=== PATIENT | male | born 1940 | race Caucasian/White ===

== ENCOUNTER 2019-08-07 12:01 | Observation (INO) ==
[2019-08-07 12:10] VITALS: BMI 28.8
[2019-08-07 12:44] LABS: BASOPHILS % (AUTO) 0.5 % (0.2-1.0); EOSINOPHILS % (AUTO) 0.2 % (0.9-2.9); HEMOGLOBIN 11.4 g/dL (13.5-18.0); LYMPHOCYTES # (AUTO) 1.1 X10^3/uL (1.3-2.9); LYMPHOCYTES % (AUTO) 18.8 % (21.0-51.0); MEAN CORPUSCULAR HEMOGLOBIN 35.3 pg (27.0-34.0); MEAN CORPUSCULAR HGB CONC 34.5 g/dL (33.0-35.0); MEAN CORPUSCULAR VOLUME 102.1 fL (80.0-100.0); MEAN PLATELET VOLUME 9.3 fL (7.4-11.0); MONOCYTES # (AUTO) 0.7 x10^3/uL (0.3-0.8); NEUTROPHILS # (AUTO) 3.9 x10^3/uL (2.2-4.8); NEUTROPHILS % (AUTO) 67.5 % (42.0-75.0); PLATELET COUNT 180 X10^3/uL (150.0-450.0); RED BLOOD COUNT 3.23 X10^6/uL (4.7-6.0); RED CELL DISTRIBUTION WIDTH 15.1 % (11.6-16.5); WHITE BLOOD COUNT 5.7 X10^3/uL (3.6-10.0)
--- NOTE | 2019-08-07 12:44 | DR.GENAD ---
HPI Time Seen Time Seen by Provider: 08/07/19 12:25 PCP Primary Care Physician: ZUNILDA HPI Comment HPI Comment: PATIENT IS 79YR OLD WHITE MALE IN ER WITH FAMILY WHO TRANSPORTED PATIENT BECAUSE OF SYNCOPAL EPISODE AT HOME. HAPPEN SHORTLY BEFORE COMING TO ED. PATIENT WAS OUTSIDE WORKING WHEN HE HAD THE SYNCOPAL EPISODE. PATIENT WAS NOT AWARE OF EPISODE. A MAN WITH PATIENT THAT WITNESS EPISODE STATED PATIENT WAS COMPLTELY OUT. PATIENT REPORTS GENERALIZED FATIGUE FOR PAST 2 MONTHS. IT IS GETTING WORSE. DENIES FEVER. RIGHT SIDE OF HIS MOUTH AND RIGHT FINGERS ARE TINGLING. DENIES HEADACHE. PATIENT HAVE A FIB ON XARELTO AND HAVE SLEEP APNEA WITH RECENT SLEEP STUDIES WITH PENDING RESULT. Complaint/Symptoms Chief Complaint Doctors Comments: SYNCOPAL EPISODE. Chief Complaint:: "BEEN EXTREMELY TIRED FOR ABOUT THE LAST 2 MONS, SLEEP STUDY SATURDAY NIGHT, WAS OUTSIDE WORKING AND PASSED OUT. SOMEONE WAS WITH HIM, MAN STATED PT WAS COMPLETELY OUT. STATED HE HAD TINGLING TO RIGHT FINGERS AND RIGHT SIDE OF MOUTH" Self Treatment fo Chief Complaint: NONE Nurses notes reviewed Nurses Notes Review: Yes Source History Provided: Patient and Family Member Mode of Arrival Mode of Arrival: Ambulatory Timing Onset of Chief Complaint: 08/07/19 Came on: Suddenly Duration Duration: Constant Duration: Hours Modifying Factors Worsens:: EXERTIONAL DYSPNEA. Improves:: REST Associated Signs and Symptoms Associated Signs and Symptoms: GENERALIZED WEAKNESS. Other History Other History: A FIB PMH PMH Past Medical History: Yes Past Medical History: Hypertension and Sleep Apnea Past Surgical History: Yes Past Surgical History Comment: PACEMAKER Family History History of Family Medical Conditions: Yes Family Medical History: Diabetes Mellitus, Cancer and Hypertension Social History Does any household member use tobacco: No Alcohol Use: None Do you use any recreational Drugs:: No Lives With: Family Lives Where: Home infectious screening In the last 2 months have you had wt loss of >10#?: NO Have you had fever, night sweats or hemotysis?: No Have you traveled outside the country in the last 6 months?: No ROS Review of Systems Constitutional: See HPI, Weakness and Fatigue; negative Fever Eyes: No Symptoms Reported and See HPI; negative Eye Pain, Blurred Vision, Photophobia and Diplopia ENTM: No Symptoms Reported and See HPI; negative Ear Pain, Nose Discharge, Nose Congestion and Throat Pain Respiratoy: No Symptoms Reported and See HPI; negative Moist Cough, Short of Breath and Wheezing Cardiovascular: See HPI and Syncope; negative Chest Pain, Edema and Palpitations Gastrointestinal/Abdominal: No Symptoms Reported and See HPI; negative Abdominal Pain, Constipation, Diarrhea, Nausea and Vomiting Genitourinary: No Symptoms Reported and See HPI; negative Dysuria, Frequency and Hematuria Neurological: See HPI, Weakness and Dizziness; negative Headache Musculoskeletal: No Symptoms Reported and See HPI; negative Back Pain and Muscle Pain Integumentary: See HPI and Bruises; negative Change in Color, Rash and Juandice Hematologic/Lymphatic: See HPI, Easy Bleeding and Easy Bruising; negative Swollen Glands Endocrine: No Symptoms Reported and See HPI; negative Increased Thirst, Increased Urine and Decreased Appetite Psychiatric: No Symptoms Reported and See HPI All Other Systems: Reviewed and Negative PE Vital Signs Vitals: Temperature 97 F Pulse Rate 69 Respiratory Rate 21 Blood Pressure 139/77 O2 Sat by Pulse Oximetry 82 General Limitations: No Limitations General Appearance: Alert and In No Apparent Distress Head Head Exam: Normal Inspection and Atraumatic Eyes Eye exam: Normal Appearance, PERRL and EOMI; negative Scleral Icterus and Conjunctival Injection ENT ENT Exam: Normal Exam, Normal Oropharynx, Normal External Ear Exam and TM's Normal Bilaterally External Ear Exam: Normal External Inspection; negative Mastoid Tenderness, Pain with Movement and External Tenderness TM/Canal Exam: Bilateral: Normal Nose Exam: Normal Nose Exam; negative Sinus Tenderness, Nasal Deviation and Septal Hematoma Mouth Exam: Normal Inspection; negative Lip Swelling and Tongue Swelling Throat Exam: Normal Inspection; negative Tonsillar Erythema, Tonsillomegaly and Tonsillar Exudate Neck Neck Exam: Normal Inspection and Trachea Midline; negative Tenderness and Lymphadenopathy Chest Chest Inspection: Normal Inspection and Symmetric Chest Wall Rise; negative Tenderness Respiratory Respiratory Exam: Normal Lung Sounds Bilat; negative Accessory Muscle Use, Chest Wall Tenderness and Respiratory Distress Respiratory Exam: Bilateral: Rhonchi and Lower: Rhonchi Cardiovascular Cardiovascular Exam: Regular Rate, Normal Rhythm and Normal Heart Sounds; negative Systolic Murmur and Diastolic Murmur Extremities Extremities Exam: Normal Inspection and Normal Capillary Refill; negative Tenderness, Edema and Calf Tenderness Back Back Exam: Normal Inspection Neurologic Neurological Exam: Alert, Oriented X3 and CN II-XII Intact; negative Motor Sensory Deficit Psychiatric Psychiatric Exam: Normal Affect and Normal Mood Skin Skin Exam: Warm, Dry, Intact and Normal Color MDM Differential Diagnosis Differential Diagnosis: SYNCOPAL EPISODE, A FIB, GENERALIZE WEAKNESS. COURSE Treatment Treatment: SEE ORDERS. Consultation Consultation Comments: DISCUSSED PATIENT WITH DR. CORTÉS. HE WILL ADMIT PATIENT. Education/Counseling Education/Counseling: Patient and Family Educated On: Diagnosis ROR Labs Reviewed Laboratory Results Reviewed?: Yes Result Diagrams: 08/08/19 06:20 08/08/19 06:20 Laboratory: WBC 5.7 X10^3/uL (3.6-10.0) 08/07/19 12:35 RBC 3.23 X10^6/uL (4.7-6.0) L 08/07/19 12:35 Hgb 11.4 g/dL (13.5-18.0) L 08/07/19 12:35 Hct 33.0 % (42.0-54.0) L 08/07/19 12:35 MCV 102.1 fL (80.0-100.0) H 08/07/19 12:35 MCH 35.3 pg (27.0-34.0) H 08/07/19 12:35 MCHC 34.5 g/dL (33.0-35.0) 08/07/19 12:35 RDW 15.1 % (11.6-16.5) 08/07/19 12:35 Plt Count 180 X10^3/uL (150.0-450.0) 08/07/19 12:35 MPV 9.3 fL (7.4-11.0) 08/07/19 12:35 Neut % (Auto) 67.5 % (42.0-75.0) 08/07/19 12:35 Lymph % (Auto) 18.8 % (21.0-51.0) L 08/07/19 12:35 [place] % (Auto) 13.0 % (0.0-13.0) 08/07/19 12:35 Eos % (Auto) 0.2 % (0.9-2.9) L 08/07/19 12:35 Baso % (Auto) 0.5 % (0.2-1.0) 08/07/19 12:35 Neut # (Auto) 3.9 x10^3/uL (2.2-4.8) 08/07/19 12:35 Lymph # (Auto) 1.1 X10^3/uL (1.3-2.9) L 08/07/19 12:35 Jones # (Auto) 0.7 x10^3/uL (0.3-0.8) 08/07/19 12:35 Eos # (Auto) 0.0 x10^3/uL (0.0-0.2) 08/07/19 12:35 Baso # (Auto) 0.0 X10^3/uL (0.0-0.1) 08/07/19 12:35 Absolute Nucleated RBC 0.2 /100WBC 08/07/19 12:35 Sodium 142 mmol/L (136-145) 08/07/19 12:35 Corrected Sodium 144 mmol/L (136-145) 08/07/19 12:35 Potassium 3.6 mmol/L (3.5-5.1) 08/07/19 12:35 Chloride 106 mmol/L (98-107) 08/07/19 12:35 Carbon Dioxide 29.4 mmol/L (21-32) 08/07/19 12:35 BUN 28 mg/dL (7-18) H 08/07/19 12:35 Creatinine 1.83 mg/dL (0.70-1.30) H 08/07/19 12:35 Est GFR (MDRD) Af Amer 46 (>60) L 08/07/19 12:35 Est GFR (MDRD) Non-Af 38 (>60) L 08/07/19 12:35 Glucose 175 mg/dL (65-99) H 08/07/19 12:35 Calcium 9.2 mg/dL (8.5-10.1) 08/07/19 12:35 Corrected Calcium TNP 08/07/19 12:35 Total Bilirubin 0.90 mg/dL (0.2-1.0) 08/07/19 12:35 AST 23 Units/L (15-37) 08/07/19 12:35 ALT 39 Units/L (12-78) 08/07/19 12:35 Alkaline Phosphatase 63 Units/L (46-116) 08/07/19 12:35 Creatine Kinase 191 Units/L (39-308) 08/07/19 12:35 CK-MB (CK-2) 1.2 ng/mL (0-4.0) 08/07/19 12:35 CK/CKMB % Calc 0.6 % (<4) 08/07/19 12:35 Troponin I < 0.02 ng/mL (0-1.5) 08/07/19 12:35 Total Protein 6.7 g/dL (6.4-8.2) 08/07/19 12:35 Albumin 3.7 g/dL (3.4-5.0) 08/07/19 12:35 Globulin 3.0 g/dL (2.5-4.5) 08/07/19 12:35 Albumin/Globulin Ratio 1.2 Ratio (1.1-2.1) 08/07/19 12:35 Specimen Type Clean catch urine 08/07/19 15:07 Urine Color Yellow (YELLOW) 08/07/19 15:07 Urine Appearance Clear (CLEAR) 08/07/19 15:07 Urine pH 7.0 (5.0 - 8.0) 08/07/19 15:07 Ur Specific [place] 1.015 (1.000-1.030) 08/07/19 15:07 Urine Protein 1+ (NEGATIVE) 08/07/19 15:07 Urine Glucose (UA) Negative (NEGATIVE) 08/07/19 15:07 Urine Ketones Negative (NEGATIVE) 08/07/19 15:07 Urine Occult Blood 3+ (NEGATIVE) 08/07/19 15:07 Urine Nitrite Negative (NEGATIVE) 08/07/19 15:07 Urine Bilirubin Negative (NEGATIVE) 08/07/19 15:07 Urine Urobilinogen 2+ (NORMAL) 08/07/19 15:07 Ur Leukocyte Esterase Negative (NEGATIVE) 08/07/19 15:07 Urine RBC 3-5 /HPF (0-3) A 08/07/19 15:07 Urine WBC None seen /HPF (0-5) 08/07/19 15:07 Ur Squamous Epith Cells Negative /HPF (NEGATIVE) 08/07/19 15:07 Urine Bacteria Negative /HPF (NEGATIVE) 08/07/19 15:07 Hyaline Casts Few /LPF (NEGATIVE) 08/07/19 15:07 Ur Culture Indicated? No/not indicated 08/07/19 15:07 XRAY XRAY Interpreted by: Radiologist XRAY Findings: REPORT DISCUSSED WITH PATIENT AND FAMILY. EKG Rate: 69 [place]: Normal Rhythm: Paced Block: None Hypertrophy: None ST: Ischemia Opioid Opioid Risk Tool Age (Vinicius box if 16-45): No Total: 0 Total Score Risk Category: Low Risk Copyright: ZEB predicting aberrant behaviors Diagnosis Discharge Problem: History of atrial fibrillation Syncope Qualifiers: Syncope type: unspecified Qualified Code(s): R55 - Syncope and collapse
[2019-08-07 13:01] LABS: BLOOD UREA NITROGEN 28 mg/dL (7-18); CALCIUM 9.2 mg/dL (8.5-10.1); CARBON DIOXIDE 29.4 mmol/L (21-32); CHLORIDE 106 mmol/L (98-107); COR NA(FOR HYPERGLY) 144 mmol/L (136-145); CREATININE 1.83 mg/dL (0.70-1.30); SODIUM 142 mmol/L (136-145); TROPONIN I < 0.02 ng/mL (0-1.5); eGFR NON BLACK RACES 38 (>60)
--- NOTE | 2019-08-07 13:03 | CT ---
HISTORY: Syncope, facial numbness Study: CT brain without contrast Comparison: None Technique: Multiple axial images of the brain were obtained without administration of IV contrast. Dose reduction techniques including Automated Exposure Control (AEC) and adjustment of mA and kV were utilized. Findings: There is generalized cerebral volume loss with confluent subcortical and periventricular white matter hypoattenuation suggesting advanced microvascular ischemic changes. There is right parietal encephalomalacia suggesting a previous infarct with additional scattered hypodensities in the bilateral basal ganglia likely representing chronic lacunar infarcts. Calcified plaque is seen in the carotid and vertebral arteries. No evidence of acute hemorrhage, midline shift, mass effect or abnormal extra-axial fluid collection. Prominence of the ventricles and cortical sulci is commensurate with volume loss. The soft tissues and osseous structures are unremarkable. The visualized paranasal sinuses are clear. IMPRESSION: 1. 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 Consider MRI if there is high clinical suspicion for infarct. Reported By:
--- NOTE | 2019-08-07 13:03 | RAD ---
Examination: AP chest History: Syncope Comparison reference none Findings: Normal heart size, tortuous aorta, clear lungs. There is elevation of the left hemidiaphragm. A twin lead pacemaker is present in appropriate position. Impression: Mild nonspecific left diaphragm elevation. No acute cardiopulmonary lesion demonstrated. Reported By:
[2019-08-07 13:06] LABS: ALANINE AMINOTRANSFERASE 39 Units/L (12-78); ALBUMIN 3.7 g/dL (3.4-5.0); ALKALINE PHOSPHATASE 63 Units/L (46-116); ASPARTATE AMINO TRANSFERASE 23 Units/L (15-37); CKMB % 0.6 % (<4); CREATINE KINASE 191 Units/L (39-308); CREATINE KINASE MB 1.2 ng/mL (0-4.0); TOTAL PROTEIN 6.7 g/dL (6.4-8.2)
[2019-08-07 15:32] LABS: BILIRUBIN,URINE NEGATIVE (NEGATIVE); BLOOD/HEMOGLOBIN,URINE 3+ (NEGATIVE); GLUCOSE, URINE NEGATIVE (NEGATIVE); KETONES,URINE NEGATIVE (NEGATIVE); LEUKOCYTE ESTERASE ,URINE NEGATIVE (NEGATIVE); NITRITES,URINE NEGATIVE (NEGATIVE); PROTEIN,URINE 1+ (NEGATIVE); UROBILINOGEN,URINE 2+ (NORMAL)
[2019-08-07 15:40] LABS: APPEARANCE,URINE CLEAR (CLEAR); COLOR,URINE YELLOW (YELLOW)
[2019-08-07 15:41] LABS: BACTERIA,URINE NEGATIVE /HPF (NEGATIVE); HYALINE CASTS, URINE FEW /LPF (NEGATIVE); SQUAMOUS EPITHELIAL CELL,UR NEGATIVE /HPF (NEGATIVE)
[2019-08-07] MEDS: NS 1000 ML 1,000 ML IV SCH (19:25)
[2019-08-07 23:17] LABS: CKMB % 0.5 % (<4); CREATINE KINASE 211 Units/L (39-308); CREATINE KINASE MB < 1.0 ng/mL (0-4.0); TROPONIN I < 0.02 ng/mL (0-1.5)
[2019-08-08 07:02] LABS: BASOPHILS % (AUTO) 0.2 % (0.2-1.0); EOSINOPHILS % (AUTO) 0.4 % (0.9-2.9); HEMATOCRIT 32.2 % (42.0-54.0); HEMOGLOBIN 11.4 g/dL (13.5-18.0); LYMPHOCYTES # (AUTO) 1.3 X10^3/uL (1.3-2.9); LYMPHOCYTES % (AUTO) 25.3 % (21.0-51.0); MEAN CORPUSCULAR HEMOGLOBIN 35.9 pg (27.0-34.0); MEAN CORPUSCULAR HGB CONC 35.4 g/dL (33.0-35.0); MEAN CORPUSCULAR VOLUME 101.5 fL (80.0-100.0); MEAN PLATELET VOLUME 9.8 fL (7.4-11.0); MONOCYTES # (AUTO) 0.8 x10^3/uL (0.3-0.8); MONOCYTES % (AUTO) 14.6 % (0.0-13.0); NEUTROPHILS # (AUTO) 3.1 x10^3/uL (2.2-4.8); NEUTROPHILS % (AUTO) 59.5 % (42.0-75.0); PLATELET COUNT 168 X10^3/uL (150.0-450.0); RED BLOOD COUNT 3.17 X10^6/uL (4.7-6.0); RED CELL DISTRIBUTION WIDTH 14.8 % (11.6-16.5); WHITE BLOOD COUNT 5.2 X10^3/uL (3.6-10.0)
[2019-08-08 07:15] LABS: ALANINE AMINOTRANSFERASE 35 Units/L (12-78); ALBUMIN 3.4 g/dL (3.4-5.0); ALKALINE PHOSPHATASE 60 Units/L (46-116); ASPARTATE AMINO TRANSFERASE 21 Units/L (15-37); BLOOD UREA NITROGEN 22 mg/dL (7-18); CALCIUM 8.6 mg/dL (8.5-10.1); CARBON DIOXIDE 26.8 mmol/L (21-32); CHLORIDE 106 mmol/L (98-107); CHOL/HDL RATIO 3.5 (0.0-5.0); CHOLESTEROL 156 mg/dL (0-200); COR NA(FOR HYPERGLY) 143 mmol/L (136-145); CREATININE 1.39 mg/dL (0.70-1.30); HDL CHOLESTEROL 44 mg/dL (40-60); MAGNESIUM 2.1 mg/dL (1.7-2.9); SODIUM 142 mmol/L (136-145); TOTAL PROTEIN 6.5 g/dL (6.4-8.2); TRIGLYCERIDES 124 mg/dL (0-150); eGFR NON BLACK RACES 52 (>60)
[2019-08-08] MEDS ORDERED: POTASSIUM CHL 40 MEQ/NS 0.45% 500 ML IV PRN (08:43)
[2019-08-08] MEDS ORDERED: K-RIDER 10 MEQ/NS 100 ML 10 MEQ/100 ML BAG IV PRN (08:43)
[2019-08-08] MEDS ORDERED: K-DUR TAB 20 MEQ PO PRN (08:43)
[2019-08-08] MEDS ORDERED: POTASSIUM CHL 60 MEQ/NS 0.45% 500 ML IV PRN (08:43)
[2019-08-08] MEDS ORDERED: MICRO K EXTEN CAP 10 MEQ PO PRN (08:43)
[2019-08-08] MEDS ORDERED: POTASSIUM CHLORIDE LIQ 20 MEQ UDC PO PRN (08:43)
[2019-08-08] MEDS ORDERED: KLOR-CON PO PRN (08:43)
[2019-08-08] MEDS ORDERED: ZESTRIL TAB 20 MG ONE (10:17)
[2019-08-08] MEDS: ZESTRIL TAB 20 MG PO SCH (10:19)
[2019-08-08] MEDS: HYDROCHLOROTHIAZIDE 12.5 MG CAP PO SCH (10:19)
[2019-08-08] MEDS: NS 1000 ML 1,000 ML IV SCH ×2 (10:33→20:12)
[2019-08-08] MEDS: K-DUR TAB 20 MEQ PO SCH (11:52)
[2019-08-08] MEDS: LIPITOR TAB 40 MG PO SCH (11:54)
--- NOTE | 2019-08-08 12:12 | RAD ---
Examination: KUB History colon distention Findings: There is gaseous dilatation of scattered segments of small bowel and colon. The appearance does not suggest mechanical obstruction. There is a circular structure 4.0 cm in diameter projected just below the left diaphragm. There is no evidence for ascites or organ enlargement. The lung bases are clear. Impression: 1. Mild nonobstructive intestinal distention consistent with ileus. 2. Rounded opacity in the left upper quadrant may represent surface artifact. Gastrostomy balloon could produce similar findings. Otherwise, follow-up suggested to confirm or exclude what may be a significant abnormality. Reported By:
--- NOTE | 2019-08-08 12:28 | DR.H&P ---
H&P - History & Physical for Day of: H&P Date: 08/07/19 - Chief Complaint Chief Complaint: SYNCOPE - History of Present Illness History of Present Illness: 79 WM ER ADMISSION AFTER PRESENTING WITH CO SYNCOPAL EPISODE. PT STATES HE WAS OUT IN THE HEAT PRIOR TO EPISODE BUT DENIES STRENOUS ACTIVITY AT THAT TIME, NOR CHEST PAIN OR SOB. PT DENIES ANY TREVINO OR DIZZINESS. PT CT HEAD IN ER WO ACUTE FINDINGS, NO NEUROLOGICAL DEFICITS. PT HAS PMH OF AFIB S/P ABLATION APPROX 3 YEARS AGO. HAS PACE MAKER AND ON XARELTO. PT HAD BEEN UNDER THE CARE OF [facility], HAD REPORTS CATH AND ECHO LESS THAN ONE YEAR AGO. PT ADMITTED FOR EVALUATION OF ACUTE ILLNESS. - Past Medical History Past Medical History: Hypertension, Kidney Stones, Sleep Apnea Additional Medical History: AFIB - Past Surgical History Additional Surgical History: PACEMAKER - Family History Family Medical History: Cancer - Social History Does patient currently use any type of tobacco product: No Type of Tobacco Use: None Does any household member use tobacco: No Alcohol Use: None Drug Use: None - Medications Home Medications: No Known Drug Allergies Allergy (Verified 07/24/18 10:42) CONTINUE taking the following medications atorvastatin 40 mg PO DAILY 08/07/19 [History] celecoxib 200 mg PO DAILY 08/07/19 [History] fenofibrate 54 mg PO DAILY 08/07/19 [History] lisinopril-hydrochlorothiazide 1 tab PO DAILY 08/07/19 [History] magnesium oxide 400 mg PO BID 08/07/19 [History] potassium chloride 20 meq PO DIRECTED 08/07/19 [History] rivaroxaban [Xarelto] 20 mg PO DAILY 08/07/19 [History] - Review of Systems Constitutional: Weakness Eyes: No Symptoms Reported ENT: No Symptoms Reported Respiratory: SOB with Excertion Cardiovascular: Light Headedness Gastrointestinal: No Symptoms Reported Genitourinary: No Symptoms Reported Musculoskeletal: No Symptoms Reported Skin: No Symptoms Reported Neurological: Weakness - Physical Exam Vital Signs: Temperature 99.2 F Pulse Rate [Left Brachial] 72 Pulse Rate 69 Respiratory Rate 20 Blood Pressure [Left Arm] 177/99 Blood Pressure 139/77 O2 Sat by Pulse Oximetry 96 Oriented: Normal Eyes: Normal Ear: Normal Nose: Normal Throat: Normal Respiratory: RLL Diminished, LLL Diminished Cardiovascular: Normal, Other (PACE MAKER PRESENT) : Normal Auscultation: Bowel Sounds: Normal Palpation: Normal Tenderness: Normal Skin: Normal Musculoskeletal: Normal Psychiatric: Normal Mood Description: Calm Speech Pattern: Clear, Appropriate - Assessment/Plan (1) Syncope Status: Acute Plan: ADMIT, CT HEAD IN ER. CXR ON ADMISSION, SERIAL CE, EKG. BP CONTROL, RESUME HOME MEDICATION, RESUME XARELTO. GENTLE IV HYDRATION, STRICT I& OS. PRN SUPPLEMENTAL O2. 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
[2019-08-08 13:11] LABS: TSH (3RD GENERATION) 1.287 uIU/mL (0.358-3.74)
[2019-08-08 13:18] LABS: TOTAL PSA 1.54 ng/mL (0.13-4.0)
--- NOTE | 2019-08-08 14:14 | CT ---
History: Abdominal distension Exam: CT abdomen and pelvis without contrast Comparison: None Technique: Axial spiral images were obtained from lung bases through the pubic symphysis without contrast. Automated dose control was utilized. Findings: The lung bases are clear. There are mild linear densities scattered along the lung bases posteriorly. The liver borderline enlarged with hypertrophy of the caudate and left lobes. There is an 8 mm hypodensity in the left lobe laterally which is ill-defined. The gallbladder, pancreas, and adrenals are normal . The spleen is unremarkable. The kidneys are normal size with a 6 cm cyst along the upper pole right kidney measuring water density . There is a 6 mm parenchymal calcification along the mid polar region on the right with no hydronephrosis . There are small stones along the lower pole on the left measuring up to 3 mm with no obvious hydronephrosis. The ureters are normal caliber . The bladder is not well distended with diffuse bladder wall thickening. The prostate is mildly enlarged. No obvious ureteral stones are seen . There is a 2.7 cm fascial defect along the umbilical region with peritoneal fat extending through the defect. There are no bowel loops in the area. The appendix is normal . There is no pericecal inflammation . No adenopathy or ascites is seen . The mesentery is unremarkable . There are degenerative changes seen in the spine with no aggressive osseous lesion. IMPRESSION: Small renal stones bilaterally with no hydronephrosis and no CT evidence of urinary obstruction . Mild chronic liver changes with a 8 mm hypodensity in the left lobe laterally which may represent a cyst but is too small to characterize. Suggest ultrasound correlation 6 cm cystic mass upper pole right kidney , suggest ultrasound correlation. 2.7 cm umbilical hernia with no bowel loops in the hernia . Mild prostatic enlargement and diffuse mild bladder wall thickening which may just be due to poor distention , recommend clinical follow-up. Mild discoid atelectasis or scarring along the lung bases posteriorly. Reported By:
[2019-08-08] MEDS ORDERED: APRESOLINE TAB 25 MG PO SCH (17:00)
[2019-08-08] MEDS ORDERED: CATAPRES TAB 0.1 MG PO SCH (17:00)
[2019-08-08] MEDS: MAG-OX TAB PO SCH (20:12)
[2019-08-08] MEDS: CATAPRES TAB 0.1 MG PO PRN (20:12)
[2019-08-08] MEDS ORDERED: FLOMAX PO SCH (21:00)
[2019-08-09] MEDS: CATAPRES TAB 0.1 MG PO PRN (01:15)
[2019-08-09 06:06] LABS: BASOPHILS % (AUTO) 0.2 % (0.2-1.0); EOSINOPHILS % (AUTO) 0.6 % (0.9-2.9); HEMATOCRIT 32.7 % (42.0-54.0); HEMOGLOBIN 11.5 g/dL (13.5-18.0); LYMPHOCYTES # (AUTO) 1.2 X10^3/uL (1.3-2.9); LYMPHOCYTES % (AUTO) 29.1 % (21.0-51.0); MEAN CORPUSCULAR HEMOGLOBIN 35.6 pg (27.0-34.0); MEAN CORPUSCULAR HGB CONC 35.3 g/dL (33.0-35.0); MEAN CORPUSCULAR VOLUME 100.9 fL (80.0-100.0); MEAN PLATELET VOLUME 9.3 fL (7.4-11.0); MONOCYTES # (AUTO) 0.6 x10^3/uL (0.3-0.8); MONOCYTES % (AUTO) 14.7 % (0.0-13.0); NEUTROPHILS # (AUTO) 2.4 x10^3/uL (2.2-4.8); NEUTROPHILS % (AUTO) 55.4 % (42.0-75.0); PLATELET COUNT 161 X10^3/uL (150.0-450.0); RED BLOOD COUNT 3.24 X10^6/uL (4.7-6.0); RED CELL DISTRIBUTION WIDTH 15.2 % (11.6-16.5); WHITE BLOOD COUNT 4.3 X10^3/uL (3.6-10.0)
[2019-08-09 06:21] LABS: ALANINE AMINOTRANSFERASE 37 Units/L (12-78); ALBUMIN 3.3 g/dL (3.4-5.0); ALKALINE PHOSPHATASE 60 Units/L (46-116); ASPARTATE AMINO TRANSFERASE 23 Units/L (15-37); BLOOD UREA NITROGEN 17 mg/dL (7-18); CALCIUM 8.7 mg/dL (8.5-10.1); CARBON DIOXIDE 29.3 mmol/L (21-32); CHLORIDE 106 mmol/L (98-107); COR CA(FOR HYPOALB) 9.3 mg/dL (8.5-10.1); COR NA(FOR HYPERGLY) 145 mmol/L (136-145); CREATININE 1.27 mg/dL (0.70-1.30); SODIUM 144 mmol/L (136-145); TOTAL PROTEIN 6.3 g/dL (6.4-8.2); eGFR NON BLACK RACES 58 (>60)
[2019-08-09] MEDS ORDERED: ZESTRIL TAB 20 MG ONE (07:58)
[2019-08-09] MEDS: K-DUR TAB 20 MEQ PO SCH (08:25)
[2019-08-09] MEDS: MAG-OX TAB PO SCH ×2 (08:25→20:08)
[2019-08-09] MEDS: ZESTRIL TAB 20 MG PO SCH (08:26)
[2019-08-09] MEDS: HYDROCHLOROTHIAZIDE 12.5 MG CAP PO SCH (08:26)
[2019-08-09] MEDS: LIPITOR TAB 40 MG PO SCH (08:32)
[2019-08-09] MEDS ORDERED: TRICOR TAB 48 MG PO SCH ×2 (09:00→21:00)
[2019-08-09] MEDS ORDERED: XARELTO PO SCH ×2 (09:00→21:00)
[2019-08-09] MEDS ORDERED: ASPIRIN EC 81 MG PO SCH (09:00)
[2019-08-09] MEDS ORDERED: CLARITIN PO SCH (09:00)
[2019-08-09] MEDS ORDERED: PROTONIX TAB 40 MG PO SCH (09:00)
[2019-08-09] MEDS ORDERED: CARDIZEM CD 360 MG 24-HR PO SCH (09:00)
[2019-08-09] MEDS ORDERED: CELEBREX PO SCH ×2 (09:00→21:00)
[2019-08-09] MEDS ORDERED: PHARMACY CONSULT - DOSE _____ XX SCH (09:00)
[2019-08-09] MEDS: NS 1000 ML 1,000 ML IV SCH ×2 (09:44→21:33)
[2019-08-09] MEDS: CARDIZEM CD 240 MG 24-HR PO SCH (12:51)
[2019-08-09] MEDS ORDERED: LIPITOR TAB 40 MG PO SCH (21:00)
[2019-08-10 06:04] LABS: BASOPHILS % (AUTO) 0.3 % (0.2-1.0); EOSINOPHILS % (AUTO) 0.6 % (0.9-2.9); HEMATOCRIT 33.7 % (42.0-54.0); HEMOGLOBIN 11.8 g/dL (13.5-18.0); LYMPHOCYTES # (AUTO) 1.5 X10^3/uL (1.3-2.9); LYMPHOCYTES % (AUTO) 31.1 % (21.0-51.0); MEAN CORPUSCULAR HGB CONC 35.1 g/dL (33.0-35.0); MEAN CORPUSCULAR VOLUME 99.9 fL (80.0-100.0); MEAN PLATELET VOLUME 9.6 fL (7.4-11.0); MONOCYTES # (AUTO) 0.8 x10^3/uL (0.3-0.8); NEUTROPHILS # (AUTO) 2.4 x10^3/uL (2.2-4.8); PLATELET COUNT 165 X10^3/uL (150.0-450.0); RED BLOOD COUNT 3.38 X10^6/uL (4.7-6.0); RED CELL DISTRIBUTION WIDTH 15.1 % (11.6-16.5); WHITE BLOOD COUNT 4.7 X10^3/uL (3.6-10.0)
[2019-08-10 06:10] LABS: ALANINE AMINOTRANSFERASE 36 Units/L (12-78); ALBUMIN 3.3 g/dL (3.4-5.0); ALKALINE PHOSPHATASE 66 Units/L (46-116); ASPARTATE AMINO TRANSFERASE 20 Units/L (15-37); BLOOD UREA NITROGEN 18 mg/dL (7-18); CALCIUM 8.8 mg/dL (8.5-10.1); CARBON DIOXIDE 30.3 mmol/L (21-32); CHLORIDE 105 mmol/L (98-107); COR CA(FOR HYPOALB) 9.4 mg/dL (8.5-10.1); COR NA(FOR HYPERGLY) 145 mmol/L (136-145); CREATININE 1.35 mg/dL (0.70-1.30); SODIUM 144 mmol/L (136-145); TOTAL PROTEIN 6.5 g/dL (6.4-8.2); eGFR NON BLACK RACES 54 (>60)
[2019-08-10] MEDS ORDERED: ZESTRIL TAB 20 MG ONE (08:11)
[2019-08-10 09:22] VITALS: BP 168/85
[2019-08-10] MEDS: CARDIZEM CD 240 MG 24-HR PO SCH (09:28)
[2019-08-10] MEDS: HYDROCHLOROTHIAZIDE 12.5 MG CAP PO SCH (09:28)
[2019-08-10] MEDS: ZESTRIL TAB 20 MG PO SCH (09:28)
[2019-08-10] MEDS: MAG-OX TAB PO SCH (09:28)
[2019-08-10] MEDS: K-DUR TAB 20 MEQ PO SCH (09:28)
--- NOTE | 2019-08-10 12:19 | PCM.PROG ---
Progress Note - Progress Note for Day of Date of Exam: 08/08/19 - Subjective Subjective: 79 WM ER ADMISSION AFTER PRESENTING WITH CO SYNCOPE AND INCREASED VALENZUELA AND FATIGUE. PT HAD CT HEAD ON ADMISSION WITH NO ACUTE CVA FINDINGS. PT WAS DEHYDRATED ON ADMISSION WITH IMPROVING RENAL FUNCTION TODAY BUN 22 CREAT 1.39. PT BP HAD BEEN ELEVATED, PT WAS UNSURE OF HOME MEDICATIONS WHICH WE RESUMED THIS AM. PT DENIES ANY CHEST PAIN, BUT DOES REPORT SIGNIFICANT INCREASED FATIGUE AND RECENTLY SEEN NIGHT SHIFT MANAGER IN [facility] OFFICE AND HAD SLEEP STUDY REPEATED. PT LABS AND XRAYS REVIEWED WITH PT AND FAMILY. NS INSTRUCTED TO OBTAIN LAST CATH REPORT, CAROTID REPORTS WAS REVIEWED WITH LESS THAN 50% STENOSIS. - Past Medical Family Social History Past Med/Fam/Surg Hx: No changes since H&P Allergies: Allergies No Known Drug Allergies Allergy (Verified 07/24/18 10:42) - Review of Systems ROS: No change since H&P - Vital Signs and I&O's Vital Signs: Temperature 98.8 F Pulse Rate [Left Brachial] 70 Pulse Rate 69 Respiratory Rate 20 Blood Pressure [Left Arm] 168/85 Blood Pressure 139/77 O2 Sat by Pulse Oximetry 96 Intake and Output: Intake & Output 08/08/19 08/09/19 08/10/19 08/11/19 11:59 11:59 11:59 11:59 Intake Total 1080 / 1080 1640 / 1640 2310 / 2310 Output Total 725 / 725 575 / 575 900 / 900 Balance 355 / 355 1065 / 1065 1410 / 1410 - Physical Exam Oriented: Normal Eyes: Normal Ear: Normal Nose: Normal Throat: Normal Respiratory: Diminished (MILDLY) Cardiovascular: Normal, Other (PACE MAKER PRESENT) : Normal Auscultation: Bowel Sounds: Normal Tenderness: Normal Skin: Normal Musculoskeletal: Normal Psychiatric: Normal Mood Description: Calm Speech Pattern: Clear, Appropriate - Laboratory and Diagnostics Result Diagrams: 08/10/19 05:12 08/10/19 05:12 Labs: Laboratory WBC 4.7 X10^3/uL (3.6-10.0) 08/10/19 05:12 RBC 3.38 X10^6/uL (4.7-6.0) L 08/10/19 05:12 Hgb 11.8 g/dL (13.5-18.0) L 08/10/19 05:12 Hct 33.7 % (42.0-54.0) L 08/10/19 05:12 MCV 99.9 fL (80.0-100.0) 08/10/19 05:12 MCH 35.0 pg (27.0-34.0) H 08/10/19 05:12 MCHC 35.1 g/dL (33.0-35.0) H 08/10/19 05:12 RDW 15.1 % (11.6-16.5) 08/10/19 05:12 Plt Count 165 X10^3/uL (150.0-450.0) 08/10/19 05:12 MPV 9.6 fL (7.4-11.0) 08/10/19 05:12 Neut % (Auto) 51.0 % (42.0-75.0) 08/10/19 05:12 Lymph % (Auto) 31.1 % (21.0-51.0) 08/10/19 05:12 [place] % (Auto) 17.0 % (0.0-13.0) H 08/10/19 05:12 Eos % (Auto) 0.6 % (0.9-2.9) L 08/10/19 05:12 Baso % (Auto) 0.3 % (0.2-1.0) 08/10/19 05:12 Neut # (Auto) 2.4 x10^3/uL (2.2-4.8) 08/10/19 05:12 Lymph # (Auto) 1.5 X10^3/uL (1.3-2.9) 08/10/19 05:12 [place] # (Auto) 0.8 x10^3/uL (0.3-0.8) 08/10/19 05:12 Eos # (Auto) 0.0 x10^3/uL (0.0-0.2) 08/10/19 05:12 Baso # (Auto) 0.0 X10^3/uL (0.0-0.1) 08/10/19 05:12 Absolute Nucleated RBC 0.2 /100WBC 08/10/19 05:12 Sodium 144 mmol/L (136-145) 08/10/19 05:12 Corrected Sodium 145 mmol/L (136-145) 08/10/19 05:12 Potassium 3.2 mmol/L (3.5-5.1) L 08/10/19 05:12 Chloride 105 mmol/L (98-107) 08/10/19 05:12 Carbon Dioxide 30.3 mmol/L (21-32) 08/10/19 05:12 BUN 18 mg/dL (7-18) 08/10/19 05:12 Creatinine 1.35 mg/dL (0.70-1.30) H 08/10/19 05:12 Est GFR (MDRD) Af Amer > 60 (>60) 08/10/19 05:12 Est GFR (MDRD) Non-Af 54 (>60) L 08/10/19 05:12 Glucose 137 mg/dL (65-99) H 08/10/19 05:12 Hemoglobin A1c 7.3 % 08/09/19 05:40 Calcium 8.8 mg/dL (8.5-10.1) 08/10/19 05:12 Corrected Calcium 9.4 mg/dL (8.5-10.1) 08/10/19 05:12 Magnesium 2.1 mg/dL (1.7-2.9) 08/10/19 05:12 Iron 158 ug/dL (50-175) 08/09/19 05:40 Transferrin 184 mg/dL (202-364) L 08/09/19 05:40 Ferritin 204 ng/mL (26-388) 08/09/19 05:40 Total Bilirubin 0.80 mg/dL (0.2-1.0) 08/10/19 05:12 AST 20 Units/L (15-37) 08/10/19 05:12 ALT 36 Units/L (12-78) 08/10/19 05:12 Alkaline Phosphatase 66 Units/L (46-116) 08/10/19 05:12 Creatine Kinase 211 Units/L (39-308) 08/07/19 22:33 CK-MB (CK-2) < 1.0 ng/mL (0-4.0) 08/07/19 22:33 CK/CKMB % Calc 0.5 % (<4) 08/07/19 22:33 Troponin I < 0.02 ng/mL (0-1.5) 08/07/19 22:33 Total Protein 6.5 g/dL (6.4-8.2) 08/10/19 05:12 Albumin 3.3 g/dL (3.4-5.0) L 08/10/19 05:12 Globulin 3.2 g/dL (2.5-4.5) 08/10/19 05:12 Albumin/Globulin Ratio 1.0 Ratio (1.1-2.1) L 08/10/19 05:12 Triglycerides 124 mg/dL (0-150) 08/08/19 06:20 Cholesterol 156 mg/dL (0-200) 08/08/19 06:20 LDL Cholesterol, Calc 87 mg/dL (0-100) 08/08/19 06:20 HDL Cholesterol 44 mg/dL (40-60) 08/08/19 06:20 Cholesterol/HDL Ratio 3.5 (0.0-5.0) 08/08/19 06:20 Total PSA 1.54 ng/mL (0.13-4.0) 08/08/19 06:20 Vitamin B12 624 pg/mL (193-986) 08/09/19 05:40 Folate 8.5 ng/mL (>8.6) L 08/09/19 05:40 Free T4 0.90 ng/dL (0.76-1.46) 08/09/19 05:40 TSH 3rd Generation 1.287 uIU/mL (0.358-3.74) 08/08/19 06:20 Specimen Type Clean catch urine 08/07/19 15:07 Urine Color Yellow (YELLOW) 08/07/19 15:07 Urine Appearance Clear (CLEAR) 08/07/19 15:07 Urine pH 7.0 (5.0 - 8.0) 08/07/19 15:07 Ur Specific [place] 1.015 (1.000-1.030) 08/07/19 15:07 Urine Protein 1+ (NEGATIVE) 08/07/19 15:07 Urine Glucose (UA) Negative (NEGATIVE) 08/07/19 15:07 Urine Ketones Negative (NEGATIVE) 08/07/19 15:07 Urine Occult Blood 3+ (NEGATIVE) 08/07/19 15:07 Urine Nitrite Negative (NEGATIVE) 08/07/19 15:07 Urine Bilirubin Negative (NEGATIVE) 08/07/19 15:07 Urine Urobilinogen 2+ (NORMAL) 08/07/19 15:07 Ur Leukocyte Esterase Negative (NEGATIVE) 08/07/19 15:07 Urine RBC 3-5 /HPF (0-3) A 08/07/19 15:07 Urine WBC None seen /HPF (0-5) 08/07/19 15:07 Ur Squamous Epith Cells Negative /HPF (NEGATIVE) 08/07/19 15:07 Urine Bacteria Negative /HPF (NEGATIVE) 08/07/19 15:07 Hyaline Casts Few /LPF (NEGATIVE) 08/07/19 15:07 Ur Culture Indicated? No/not indicated 08/07/19 15:07 - Plan (1) Syncope Status: Acute Qualifiers: Syncope type: unspecified Qualified Code(s): R55 - Syncope and collapse Plan: CT HEAD IN ER. CXR ON ADMISSION, SERIAL CE, EKG. BP CONTROL, RESUME HOME MEDICATION, RESUME XARELTO. GENTLE IV HYDRATION, STRICT I& OS. PRN SUPPLEMENTAL O2. OBTAIN LAST CATH REPORT FROM [facility] IN [place]. 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
--- NOTE | 2019-08-10 12:27 | PCM.PROG ---
Progress Note - Progress Note for Day of Date of Exam: 08/09/19 - Subjective Subjective: 79 WM ER ADMISSION AFTER PRESENTING WITH CO SYNCOPE AND INCREASED VALENZUELA AND FATIGUE. PT HAD CT HEAD ON ADMISSION WITH NO ACUTE CVA FINDINGS. PT WAS DEHYDRATED ON ADMISSION WITH IMPROVING RENAL FUNCTION TODAY BUN 17 CREAT 1.27. PT BP HAD BEEN ELEVATED, PT WAS UNSURE OF HOME MEDICATIONS. LISINOPRIL RESUMED BUT DILTIAZEM NOT GIVEN UNTIL THIS AM SO BP CONTINUED TO BE ELEVATED. PT DENIES ANY HEADACHE OR DIZZINESS. PT DENIES ANY CHEST PAIN, BUT DOES REPORT SIGNIFICANT INCREASED FATIGUE AND RECENTLY SEEN [facility] [employer] AND FORMER IN [facility] OFFICE AND HAD SLEEP STUDY REPEATED. PT LABS AND XRAYS REVIEWED WITH PT AND FAMILY. NS INSTRUCTED TO OBTAIN LAST CATH REPORT, CAROTID REPORTS WAS REVIEWED WITH LESS THAN 50% STENOSIS. PT HAD ABDOMINAL DISTENTION, CT ABD PELVIS REVEALED RENAL STONES AND ENLARGED PROTSTATE AND RENAL CYST. REVIEWED RESULTS WITH PT AND FAMILY, NO SIGNS OF WIDENED ABDOMINAL AORTA. ENCOURAGED PT TO F/U WITH DR KELLER FOR PACE MAKER INTERROGATION AND R/O DYSRHYTHMIA. - Past Medical Family Social History Past Med/Fam/Surg Hx: No changes since H&P Allergies: Allergies No Known Drug Allergies Allergy (Verified 07/24/18 10:42) - Review of Systems ROS: No change since H&P - Vital Signs and I&O's Vital Signs: Temperature 98.8 F Pulse Rate [Left Brachial] 70 Pulse Rate 69 Respiratory Rate 20 Blood Pressure [Left Arm] 168/85 Blood Pressure 139/77 O2 Sat by Pulse Oximetry 96 Intake and Output: Intake & Output 08/08/19 08/09/19 08/10/19 08/11/19 11:59 11:59 11:59 11:59 Intake Total 1080 / 1080 1640 / 1640 2310 / 2310 Output Total 725 / 725 575 / 575 900 / 900 Balance 355 / 355 1065 / 1065 1410 / 1410 - Physical Exam Oriented: Normal Eyes: Normal Ear: Normal Nose: Normal Throat: Normal Respiratory: Normal Cardiovascular: Normal, Other (PACE MAKER PRESENT) : Normal Auscultation: Bowel Sounds: Normal Tenderness: Normal Skin: Normal Musculoskeletal: Normal Psychiatric: Normal Mood Description: Calm Speech Pattern: Clear, Appropriate - Laboratory and Diagnostics Result Diagrams: 08/10/19 05:12 08/10/19 05:12 Labs: Laboratory WBC 4.7 X10^3/uL (3.6-10.0) 08/10/19 05:12 RBC 3.38 X10^6/uL (4.7-6.0) L 08/10/19 05:12 Hgb 11.8 g/dL (13.5-18.0) L 08/10/19 05:12 Hct 33.7 % (42.0-54.0) L 08/10/19 05:12 MCV 99.9 fL (80.0-100.0) 08/10/19 05:12 MCH 35.0 pg (27.0-34.0) H 08/10/19 05:12 MCHC 35.1 g/dL (33.0-35.0) H 08/10/19 05:12 RDW 15.1 % (11.6-16.5) 08/10/19 05:12 Plt Count 165 X10^3/uL (150.0-450.0) 08/10/19 05:12 MPV 9.6 fL (7.4-11.0) 08/10/19 05:12 Neut % (Auto) 51.0 % (42.0-75.0) 08/10/19 05:12 Lymph % (Auto) 31.1 % (21.0-51.0) 08/10/19 05:12 [place] % (Auto) 17.0 % (0.0-13.0) H 08/10/19 05:12 Eos % (Auto) 0.6 % (0.9-2.9) L 08/10/19 05:12 Baso % (Auto) 0.3 % (0.2-1.0) 08/10/19 05:12 Neut # (Auto) 2.4 x10^3/uL (2.2-4.8) 08/10/19 05:12 Lymph # (Auto) 1.5 X10^3/uL (1.3-2.9) 08/10/19 05:12 [place] # (Auto) 0.8 x10^3/uL (0.3-0.8) 08/10/19 05:12 Eos # (Auto) 0.0 x10^3/uL (0.0-0.2) 08/10/19 05:12 Baso # (Auto) 0.0 X10^3/uL (0.0-0.1) 08/10/19 05:12 Absolute Nucleated RBC 0.2 /100WBC 08/10/19 05:12 Sodium 144 mmol/L (136-145) 08/10/19 05:12 Corrected Sodium 145 mmol/L (136-145) 08/10/19 05:12 Potassium 3.2 mmol/L (3.5-5.1) L 08/10/19 05:12 Chloride 105 mmol/L (98-107) 08/10/19 05:12 Carbon Dioxide 30.3 mmol/L (21-32) 08/10/19 05:12 BUN 18 mg/dL (7-18) 08/10/19 05:12 Creatinine 1.35 mg/dL (0.70-1.30) H 08/10/19 05:12 Est GFR (MDRD) Af Amer > 60 (>60) 08/10/19 05:12 Est GFR (MDRD) Non-Af 54 (>60) L 08/10/19 05:12 Glucose 137 mg/dL (65-99) H 08/10/19 05:12 Hemoglobin A1c 7.3 % 08/09/19 05:40 Calcium 8.8 mg/dL (8.5-10.1) 08/10/19 05:12 Corrected Calcium 9.4 mg/dL (8.5-10.1) 08/10/19 05:12 Magnesium 2.1 mg/dL (1.7-2.9) 08/10/19 05:12 Iron 158 ug/dL (50-175) 08/09/19 05:40 Transferrin 184 mg/dL (202-364) L 08/09/19 05:40 Ferritin 204 ng/mL (26-388) 08/09/19 05:40 Total Bilirubin 0.80 mg/dL (0.2-1.0) 08/10/19 05:12 AST 20 Units/L (15-37) 08/10/19 05:12 ALT 36 Units/L (12-78) 08/10/19 05:12 Alkaline Phosphatase 66 Units/L (46-116) 08/10/19 05:12 Creatine Kinase 211 Units/L (39-308) 08/07/19 22:33 CK-MB (CK-2) < 1.0 ng/mL (0-4.0) 08/07/19 22:33 CK/CKMB % Calc 0.5 % (<4) 08/07/19 22:33 Troponin I < 0.02 ng/mL (0-1.5) 08/07/19 22:33 Total Protein 6.5 g/dL (6.4-8.2) 08/10/19 05:12 Albumin 3.3 g/dL (3.4-5.0) L 08/10/19 05:12 Globulin 3.2 g/dL (2.5-4.5) 08/10/19 05:12 Albumin/Globulin Ratio 1.0 Ratio (1.1-2.1) L 08/10/19 05:12 Triglycerides 124 mg/dL (0-150) 08/08/19 06:20 Cholesterol 156 mg/dL (0-200) 08/08/19 06:20 LDL Cholesterol, Calc 87 mg/dL (0-100) 08/08/19 06:20 HDL Cholesterol 44 mg/dL (40-60) 08/08/19 06:20 Cholesterol/HDL Ratio 3.5 (0.0-5.0) 08/08/19 06:20 Total PSA 1.54 ng/mL (0.13-4.0) 08/08/19 06:20 Vitamin B12 624 pg/mL (193-986) 08/09/19 05:40 Folate 8.5 ng/mL (>8.6) L 08/09/19 05:40 Free T4 0.90 ng/dL (0.76-1.46) 08/09/19 05:40 TSH 3rd Generation 1.287 uIU/mL (0.358-3.74) 08/08/19 06:20 Specimen Type Clean catch urine 08/07/19 15:07 Urine Color Yellow (YELLOW) 08/07/19 15:07 Urine Appearance Clear (CLEAR) 08/07/19 15:07 Urine pH 7.0 (5.0 - 8.0) 08/07/19 15:07 Ur Specific [place] 1.015 (1.000-1.030) 08/07/19 15:07 Urine Protein 1+ (NEGATIVE) 08/07/19 15:07 Urine Glucose (UA) Negative (NEGATIVE) 08/07/19 15:07 Urine Ketones Negative (NEGATIVE) 08/07/19 15:07 Urine Occult Blood 3+ (NEGATIVE) 08/07/19 15:07 Urine Nitrite Negative (NEGATIVE) 08/07/19 15:07 Urine Bilirubin Negative (NEGATIVE) 08/07/19 15:07 Urine Urobilinogen 2+ (NORMAL) 08/07/19 15:07 Ur Leukocyte Esterase Negative (NEGATIVE) 08/07/19 15:07 Urine RBC 3-5 /HPF (0-3) A 08/07/19 15:07 Urine WBC None seen /HPF (0-5) 08/07/19 15:07 Ur Squamous Epith Cells Negative /HPF (NEGATIVE) 08/07/19 15:07 Urine Bacteria Negative /HPF (NEGATIVE) 08/07/19 15:07 Hyaline Casts Few /LPF (NEGATIVE) 08/07/19 15:07 Ur Culture Indicated? No/not indicated 08/07/19 15:07 - Plan (1) Syncope Status: Acute Qualifiers: Syncope type: unspecified Qualified Code(s): R55 - Syncope and collapse Plan: CT HEAD IN ER. CXR ON ADMISSION, SERIAL CE, EKG. BP CONTROL, RESUME HOME MEDICATION, RESUME XARELTO. GENTLE IV HYDRATION, STRICT I& OS. PRN SUPPLEMENTAL O2. OBTAIN LAST CATH REPORT FROM [facility] IN [place]. 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 ANEMIA PANEL (7) BPH (benign prostatic hyperplasia) Status: Acute Plan: PSA
== END 2019-08-10 11:30 | disposition home or self-care (01) ==
LOC: ER 12:01 → INTOOBSV 16:19 → MED/SURG 16:19
PROVIDERS: ADMIT Internal Medicine; ATTEND Obstetrics & Gynecology Obstetrics
DX: Z79.01 Long term (current) use of anticoagulants; N20.0 Calculus of kidney; R55 Syncope and collapse; E78.5 Hyperlipidemia, unspecified; I48.91 Unspecified atrial fibrillation; Z95.0 Presence of cardiac pacemaker; R82.90 Unspecified abnormal findings in urine; R94.31 Abnormal electrocardiogram [ECG] [EKG]; I95.9 Hypotension, unspecified; I49.9 Cardiac arrhythmia, unspecified; N41.0 Acute prostatitis
CPT/HCPCS: 36415; 70450; 71010; 71045; 74000; 74018; 74176; 80053; 80061; 81001; 82550; 82553; 82607; 82728; 82746; 83036; 83540; 83735; 84153; 84439; 84443; 84466; 84484; 85025; 93005; 94760; 96365; 99284; A4222; G0378; J7030